=== PATIENT | female | born 2000 | race Caucasian/White ===

== ENCOUNTER 2021-11-18 09:34 | Emergency (ER) | payer BC ==
[~2021-11-18] VITALS: Ht 162.6 cm; Wt 44.9 kg
[2021-11-18 09:44] VITALS: BP 127/74
--- NOTE | 2021-11-18 11:00 | NUR ---
pt wishes to leave at this time
--- NOTE | 2021-11-18 11:02 | NUR ---
lwbs at this time
== END 2021-11-18 11:02 | disposition left against medical advice (07) ==
LOC: MED 09:34
DX: R11.10 Vomiting, unspecified (principal); Z53.21 Procedure and treatment not carried out due to patient leaving prior to being seen by health care provider